=== PATIENT | male | born 1980 | race Caucasian/White ===

== ENCOUNTER 2022-04-19 10:53 | Emergency (ER) | payer BC, SELFPAY ==
[2022-04-19 11:16] VITALS: BP 153/93; PULSE 74; RESP 20; TEMP 36.5; O2SAT 98; BMI 23.1
--- NOTE | 2022-04-19 12:05 | ED.GENADULT ---
HPI - General Adult General Time Seen by Provider: 12:05 Date Seen: 04/19/22 Chief complaint: Abdominal Pain Stated complaint: Gallbladder pain Time Seen by Provider: 04/19/22 12:04 Source: patient and RN notes reviewed Mode of arrival: ambulatory Limitations: no limitations History of Present Illness HPI narrative: Fahad is a 42-year-old male coming in with concern of gallbladder issues. He has been having progressively increased frequency and longer severity of symptoms with right upper quadrant abdominal pain with eating. He may occasionally note something with breathing but it seems different. He has had no nausea vomiting with this, no change in stools or diarrhea. He does have ongoing urinary frequency and recently was started on Flomax for enlarged prostate per report. He has had no fevers or chills. He thinks he has maybe had intermittent episode dating back a few years but recently it has been happening maybe 3 or 4 times a day, lasting longer, maybe up to 10 minutes. Any food can seem to precipitate it. 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 Sounds as if he is done inpatient and outpatient stays for this prior. Right now he has about a month and a half in. He has never had any prior abdominal surgery. He is on Flomax for his reported BPH and also medicine to decrease cravings, wonder if it is naltrexone. In his family history, his mom has had to have her gallbladder out for gallstones reportedly. Related Data Home Medications Medication Instructions Recorded Confirmed Unobtainable 04/19/22 04/19/22 Allergies Allergy/AdvReac Type Severity Reaction Status Date / Time No Known Drug Allergies Allergy Verified 04/19/22 11:20 Review of Systems Status of ROS: Reports: 10 or more systems reviewed and unremarkable except as noted in History and below [facility] Medical History (Updated 04/19/22 @ 14:58 by Sheryl Raygoza MD) Substance abuse Social History Non-prescribed substance use: denies use Exam Const: Vital Signs, click to edit/add: Vital Signs - 24 hr 04/19/22 11:16 Temperature 97.7 F Pulse Rate [Pulse Oximeter] 74 Respiratory Rate 20 Blood Pressure [Ri ght Upper Arm] 153/93 H Pulse Oximetry 98 Oxygen Delivery Me thod Room Air Documenting provider has reviewed patient's vital signs: yes Common normals: no apparent distress, average body habitus, oriented x3, no limitations, healthy appearing, alert and well nourished General appearance: cooperative, comfortable, well kempt and well developed Nutritional appearance: thin HENMT: Common normals: normocephalic, head/scalp atraumatic and hearing grossly normal bilaterally Head and scalp: normocephalic and atraumatic Eye: Common normals: PERRL, EOMs intact bilaterally, conjunctivae normal and no scleral icterus Conjunctiva: conjunctiva(e) normal Pupil: PERRL Neck & C-Spine: Common normals: full ROM, no lymphadenopathy, no meningeal signs, no JVD and thyroid normal Thyroid: thyroid normal Resp: Common normals: normal respiratory effort, no retractions, no use of accessory muscles and clear to auscultation bilaterally Auscultation: clear to auscultation bilaterally Cardio: Common normals: no JVD, regular rate, regular rhythm, S1 normal heart sound, S2 normal heart sound, no gallops, no clicks and no murmurs Rate: regular rate Rhythm: regular rhythm Heart sounds: S1 normal and S2 normal GI: Common normals: Normal to inspection, nondistended, normoactive bowel sounds present, soft to palpation, non-tender, no hepatosplenomegaly and no masses Palpation: soft and no hepatosplenomegaly Neuro: Common normals: oriented x3 Sensorium/orientation: alert Meningeal signs: no meningeal signs Psych: Appearance: well kempt Course Course Hospital Course: We will obtain a right upper quadrant ultrasound to look at gallbladder pathology, get baseline appropriate labs. Have reviewed with money other things in the differential that come to mind would be stomach or gastric pathology such as ulcers, gastritis, H pylori infection possibly underlying these. Will see if there is anything with his gallbladder ultrasound and labs and guide therapy accordingly. He is afebrile and currently stable, pain-free. Reevaluation(s) Reevaluation #1: Was reviewed with patient his ultrasound findings. There does appear that there might be gallbladder polyps and he can follow up with General surgery outpatient. His hemoglobin is just mildly low at 12.9. This does make me concern for possible GI causes of his issues including but not limited to peptic ulcer disease or gastritis. In the meantime, we will recommend that he go on a proton pump inhibitor. He can talk to our general surgery about considering endoscopy in his workup as well. He should consider having outpatient H pylori checked as well. Will leave some of this to follow up with his primary care provider. Time: 14:52 Vital Signs Vital signs: Initial Vital Signs Temperature 97.7 F 04/19/22 11:16 Temperature Source Temporal Artery Scan 04/19/22 11:16 Pulse Rate 74 04/19/22 11:16 Respiratory Rate 20 04/19/22 11:16 Blood Pressure 153/93 H 04/19/22 11:16 Blood Pressure Mean 113 04/19/22 11:16 Blood Pressure Position Supine 04/19/22 11:16 Pulse Oximetry 98 04/19/22 11:16 Oxygen Delivery Method 04/19/22 11:16 Vital Signs Temperature 97.7 F 04/19/22 11:16 Pulse Rate 74 04/19/22 11:16 Respiratory Rate 20 04/19/22 11:16 Blood Pressure 153/93 H 04/19/22 11:16 Pulse Oximetry 98 04/19/22 11:16 Oxygen Delivery Method 04/19/22 11:16 Temperature 97.7 F 04/19/22 11:16 Pulse Rate 74 04/19/22 11:16 Respiratory Rate 20 04/19/22 11:16 Blood Pressure 153/93 H 04/19/22 11:16 Pulse Oximetry 98 04/19/22 11:16 Oxygen Delivery Method 04/19/22 11:16 Medical Decision Making Lab Data Lab results reviewed: Yes I reviewed the patient's lab results Labs: Lab Results 04/19/22 04/19/22 04/19/22 Range/Units 11:45 12:50 12:50 WBC 7.35 (4.50-11.00) K/uL RBC 4.44 (4.30-5.90) m/uL Hgb 12.9 L (13.5-17.5) gm/dL Hct 39.3 (37.0-53.0) % MCV 89 (80-100) fL MCH 29 (26-34) pg MCHC 33 (32-36) gm/dL RDW Coeff of Irasema 13.8 (11.5-15.5) % Plt Count 248 (140-440) K/uL Neut % (Auto) 71.8 (42.0-72.0) % Lymph % (Auto) 19.0 L (20-44) % Edmunds % (Auto) 8.4 (0.0-11.0) % Eos % (Auto) 0.3 (0.0-7.0) % Baso % (Auto) 0.4 (0.0-3.0) % Neut # (Auto) 5.27 (1.7-7.0) K/uL Lymph # (Auto) 1.40 (0.90-2.90) K/uL Edmunds # (Auto) 0.60 (0.00-0.90) K/UL Eos # (Auto) 0.02 (0.00-0.50) K/uL Baso # (Auto) 0.03 (0.00-0.30) K/uL Abs Immat Gran (auto) 0.01 (0.00-0.30) K/uL Imm/Tot Granulo (auto) 0.1 % Sodium 140 (135-149) mmol/L Potassium 4.7 (3.6-5.1) mmol/L Chloride 106 (96-114) mmol/L Carbon Dioxide 30 (20-32) mmol/L BUN 14 (5-24) mg/dL Creatinine 0.9 (0.5-1.5) mg/dL Estimated Creat Clear 109.27 Estimated GFR 109 ml/min Glucose 86 (60-115) mg/dL Calcium 9.4 (8.4-10.6) mg/dL Total Bilirubin 0.4 (0.1-1.5) mg/dL AST 29 (12-35) U/L ALT 35 (4-50) U/L Alkaline Phosphatase 99 (40-150) U/L C-Reactive Protein < 0.5 L (0.5-1.0) mg/dL Total Protein 7.8 (6.0-8.3) g/dL Albumin 4.7 (3.3-5.0) g/dL Lipase 26 (23-300) U/L Urine Color Yellow (Yellow) Urine Appearance Clear (Clear) Urine pH 7.0 (5.0-8.5) Ur Specific [place] 1.010 (1.000-1.030) Urine Protein Negative (Negative) Urine Glucose (UA) Negative (Negative) Urine Ketones Negative (Negative) Urine Blood Negative (Negative) Urine Nitrite Negative (Negative) Urine Bilirubin Negative (Negative) Urine Urobilinogen 0.2 (0.2-1.0) Ur Leukocyte Esterase Negative (Negative) Urine RBC 0-2 (0-2) Urine WBC 0-2 (0-5) Ur Squamous Epith Cells Few (None-Few) Urine Bacteria None (None) Imaging Data US - abdomen: Attestation: I have reviewed the pertinent imaging results. Radiologist's impression: Patient: JULIA PEÑA Facility:?[facility] Patient ID:?[id number] Site Patient ID:?[id number]. Site :?[id number] Study:?US Abdomen/Pelvis -04/19/2022 12:43:37 PM Ordering Physician:Duarte Saucedo Final Report: Indication: Intermittent right upper quadrant pain Technique: Sonography of the abdomen was performed limited structures discussed Comparison: None Findings: Gallbladder wall thickness is globally normal 2 millimeters. There are numerous mobile echogenic foci associated with the inner aspect of the gallbladder wall. These are nonmobile and do not shadow and do not have ring down artifact. Largest of these measures 2 millimeters in greatest dimension. These likely represent multiple small polyps. No calculi. No pericholecystic fluid. No sonographic Yaala`s sign appearance The common duct measures 7 millimeters. This is mildly prominent for a patient of this age. The distal most duct is not visible on this exam. The pancreas was poorly seen due to overlying bowel gas. The right kidney is unremarkable in size and appearance measuring 9.5 x 4.8 x 5.9 centimeters. Proximal aorta and proximal cave appear normal. Impression: 1. Multiple small gallbladder polyps the largest of which measures 1 millimeter. There are no visible stones, wall thickening, pericholecystic fluid or sonographic Ayala`s sign 2. Mildly prominent extrahepatic duct for patient age measuring about 7 millimeters. The distal duct and the pancreas are poorly visualized on this study. Consider additional follow-up imaging such as MRCP in the setting of unexplained right upper quadrant pain with a mildly prominent duct. 3. The examination is otherwise overall unremarkable Critical Care Time Critical Care Time Critical Care Time: No Discharge Plan Discharge Clinical Impression: Abdominal pain, right upper quadrant, Anemia Condition: Stable Instructions: Biliary Colic (ED), Anemia (ED) Additional Instructions: Recommend follow up with our surgeons for the gallbladder polyps. Call the clinic at [phone] to get scheduled to see 1 of them. Otherwise, do recommend going on omeprazole to protect her stomach in case there is gastritis or ulcer disease. Your hemoglobin needs to be rechecked in the next 1-2 weeks, recommend recheck with your primary care provider in clinic for this. They should also consider testing you for H pylori. You can talk to the surgeon about possibility of an EGD, discuss this with them when you follow-up for the gallbladder polyps. In the meantime, if you develop severe abdominal pain, vomiting or fever with abdominal pain, do need to return to the ER for further evaluation. Prescriptions: No Action Unobtainable Stand Alone Forms: [employer] Info Instructions
--- NOTE | 2022-04-19 12:13 | CRLHL7_ITS ---
For Patients: As a result of the Century Cures Act, medical imaging exams and procedure reports are released immediately into your electronic medical record. You may view this report before your referring provider. If you have questions, please contact your health care provider. Indication: Intermittent right upper quadrant pain Technique: Sonography of the abdomen was performed limited structures discussed Comparison: None Findings: Gallbladder wall thickness is globally normal 2 millimeters. There are numerous mobile echogenic foci associated with the inner aspect of the gallbladder wall. These are nonmobile and do not shadow and do not have ring down artifact. Largest of these measures 2 millimeters in greatest dimension. These likely represent multiple small polyps. No calculi. No pericholecystic fluid. No sonographic Ayala`s sign appearance The common duct measures 7 millimeters. This is mildly prominent for a patient of this age. The distal most duct is not visible on this exam. The pancreas was poorly seen due to overlying bowel gas. The right kidney is unremarkable in size and appearance measuring 9.5 x 4.8 x 5.9 centimeters. Proximal aorta and proximal cave appear normal. Impression: 1. Multiple small gallbladder polyps the largest of which measures 1 millimeter. There are no visible stones, wall thickening, pericholecystic fluid or sonographic Ayala`s sign 2. Mildly prominent extrahepatic duct for patient age measuring about 7 millimeters. The distal duct and the pancreas are poorly visualized on this study. Consider additional follow-up imaging such as MRCP in the setting of unexplained right upper quadrant pain with a mildly prominent duct. 3. The examination is otherwise overall unremarkable Dictated by Jerzy Welch MD @ 04/19/2022 1:07:14 PM (Electronically Signed)
[2022-04-19 12:26] LABS: Appearance Urine Clear (Clear); Bilirubin Urine Negative (Negative); Blood Urine Negative (Negative); Color Urine Yellow (Yellow); Glucose Urine Negative (Negative); Ketones Urine Negative (Negative); Leukocyte Esterase Urine Negative (Negative); Nitrite Urine Negative (Negative); Protein Urine Negative (Negative); Urobilinogen Urine 0.2 (0.2-1.0)
[2022-04-19 12:34] LABS: RBC Urine 0-2 (0-2); Squamous Epithelial Cell Urine Few (None-Few); WBC Urine 0-2 (0-5)
[2022-04-19 12:59] LABS: Basophils Absolute Auto 0.03 K/uL (0.00-0.30); Basophils Percent Auto 0.4 % (0.0-3.0); Eosinophils Absolute Auto 0.02 K/uL (0.00-0.50); Eosinophils Percent Auto 0.3 % (0.0-7.0); Hematocrit 39.3 % (37.0-53.0); Hemoglobin* 12.9 gm/dL (13.5-17.5); Immature Granulocytes Abs Auto 0.01 K/uL (0.00-0.30); Immature Granulocytes Pct Auto 0.1 %; Mean Corpuscular HGB Conc 33 gm/dL (32-36); Mean Corpuscular Hemoglobin 29 pg (26-34); Mean Corpuscular Volume 89 fL (80-100); Monocytes Percent Auto 8.4 % (0.0-11.0); Neutrophils Absolute Auto 5.27 K/uL (1.7-7.0); Neutrophils Percent Auto 71.8 % (42.0-72.0); Platelet Count* 248 K/uL (140-440); RDW Coefficient of Variation % 13.8 % (11.5-15.5); Red Blood Count 4.44 m/uL (4.30-5.90); White Blood Count* 7.35 K/uL (4.50-11.00)
[2022-04-19 13:12] LABS: Albumin* 4.7 g/dL (3.3-5.0); Chloride* 106 mmol/L (96-114); Slide Review Reflex No
[2022-04-19 13:13] LABS: Potassium* 4.7 mmol/L (3.6-5.1); Sodium* 140 mmol/L (135-149)
[2022-04-19 13:15] LABS: Bilirubin Total* 0.4 mg/dL (0.1-1.5); Creatinine* 0.9 mg/dL (0.5-1.5); Est. Creatinine Clearance* 109.27; Estimated Glomerular Filt Rate 109 ml/min
[2022-04-19 13:16] LABS: Alanine Aminotransferase* 35 U/L (4-50); Alkaline Phosphatase* 99 U/L (40-150); Aspartate Amino Transferase* 29 U/L (12-35); Blood Urea Nitrogen* 14 mg/dL (5-24); Calcium* 9.4 mg/dL (8.4-10.6); Carbon Dioxide* 30 mmol/L (20-32); Glucose* 86 mg/dL (60-115); Total Protein* 7.8 g/dL (6.0-8.3)
[2022-04-19 13:19] LABS: C Reactive Protein* < 0.5 mg/dL (0.5-1.0)
[2022-04-19 13:45] LABS: Lipase* 26 U/L (23-300)
--- NOTE | 2022-04-19 15:25 | ED.NURSE ---
Follow up appointments were made for patient after he reported difficulty in finding provider. Clinic with PCP made for Apr.29 at 12:45 with appointment with surgery following with Dr. Celaya. Paper rx was provided for omeprazole.
== END 2022-04-19 15:33 | disposition home or self-care (01) ==
PROVIDERS: Emergency Provider Family Medicine
DX: R10.11 Right upper quadrant pain (principal); K82.4 Cholesterolosis of gallbladder; D64.9 Anemia, unspecified; Z79.899 Other long term (current) drug therapy
CPT/HCPCS: 36415; 76705; 80053; 81001; 83690; 85025; 86140; 99284

== ENCOUNTER 2022-06-07 10:55 | Outpatient (CLI) | payer BC, SELFPAY ==
--- NOTE | 2022-06-07 12:40 | W.ANESCHARGE ---
Anesthesia Charges Start Date/Time Anesthesia Start Date: 06/07/22 Anesthesia Start Time: 12:15 Stop Date/Time Anesthesia Stop Date: 06/07/22 Anesthesia Stop Time: 12:37 Summary Emergency: No
[2022-06-07 15:22] LABS: SARS Antigen* negative (Negative)
== END 2022-06-07 10:56 | disposition home or self-care (01) ==
PROVIDERS: PCP Family Medicine; Visit Provider Surgery
DX: R19.8 Other specified symptoms and signs involving the digestive system and abdomen (principal)
CPT/HCPCS: 00731; 43239; 87426; 88305; J2704

== ENCOUNTER 2022-06-09 21:00 | Outpatient (CLI) | payer BC, SELFPAY | END 2022-06-09 21:01 | disposition home or self-care (01) | LOC: AMB 06-10 03:03 | PROVIDERS: PCP Family Medicine; Visit Provider Family Medicine | DX: K08.89 Other specified disorders of teeth and supporting structures (principal) | CPT/HCPCS: A0425; A0429 ==

== ENCOUNTER 2022-06-09 21:13 | Emergency (ER) | payer BC, SELFPAY ==
[2022-06-09 21:22] VITALS: BP 141/100; PULSE 73; TEMP 36.7; O2SAT 98; BMI 23.0
[2022-06-09 22:35] VITALS: PULSE 54; O2SAT 98
--- NOTE | 2022-06-10 12:05 | ED_ITS ---
HPI - Dental/Oral General Chief complaint: Dental/Oral/Mouth Injury/Pain Stated complaint: Toothache Time Seen by Provider: 06/09/22 21:54 History of Present Illness HPI Narrative: 42-year-old man presenting to the emergency department with concern of pain and swelling right upper mouth. Has been having increasing pain over the last week. Using Anbesol and Orajel apparently. Is in inpatient [facility] treatment. He does admit specifically for methamphetamine. He has had problems with his teeth before. No fever. No drainage. No pain with eye movement. Due to need for transportation he arrives via EMS. Is hoping for antibiotic. Related Data Home Medications Medication Instructions Recorded Confirmed naltrexone 50 mg tablet 50 mg PO QDAY 04/28/22 04/28/22 sildenafil 100 mg tablet 100 mg PO QDAY PRN 04/28/22 04/28/22 tamsulosin 0.4 mg capsule applicator PO 04/28/22 04/28/22 omeprazole 40 mg capsule,delayed mg 06/09/22 release trazodone 50 mg tablet mg 06/09/22 Allergies Allergy/AdvReac Type Severity Reaction Status Date / Time No Known Drug Allergies Allergy Verified 04/28/22 13:36 Review of Systems Status of ROS: Reports: 6 or more systems reviewed and unremarkable except as noted in History and below [facility] Medical History Substance abuse Social History Smoking Status: Current every day smoker How often do you have a drink containing alcohol: never How often do you have six or more drinks on one occasion: Never AUDIT-C Alcohol total score: 0 Non-prescribed substance use: denies use Little interest or pleasure in doing things: more than half the days Feeling down, depressed, or hopeless: nearly every day Exam Narrative: Exam Narrative: Pleasant. Dressed casually. Flat flannel pants on. Mildly anxious seems a little uncomfortable. Breathing easily. No stridor. Lungs appear to be clear. Neck is supple. He is sore with little fullness in the right upper lymph node chain. Neck is supple. There is mild swelling of the right cheek underneath the right zygoma. No induration. Oropharyngeal exam shows tooth # 8 greyed and cracked. Some of the lingual side tooth is missing. Dentition overall looks in pretty decent shape. I do not see swelling of the gums. There are no discrete abscess. Cardiovascular with regular rate and rhythm. Const: Vital Signs, click to edit/add: Vital Signs - 24 hr 06/09/22 21:22 06/09/22 22:35 Temperature 98.0 F Pulse Rate [Pulse Oximeter] 73 54 L Blood Pressure [Le ft Upper Arm] 141/100 H Pulse Oximetry 98 98 Oxygen Delivery Me thod Room Air Room Air Documenting provider has reviewed patient's vital signs: yes Course Vital Signs Vital signs: Initial Vital Signs Temperature 98.0 F 06/09/22 21:22 Temperature Source Temporal Artery Scan 06/09/22 21:22 Pulse Rate 73 06/09/22 21:22 Blood Pressure 141/100 H 06/09/22 21:22 Blood Pressure Mean 113 06/09/22 21:22 Blood Pressure Position Sitting 06/09/22 21:22 Pulse Oximetry 98 06/09/22 21:22 Oxygen Delivery Method 06/09/22 21:22 Vital Signs Temperature 98.0 F 06/09/22 21:22 Pulse Rate 73 06/09/22 21:22 Blood Pressure 141/100 H 06/09/22 21:22 Pulse Oximetry 98 06/09/22 21:22 Oxygen Delivery Method 06/09/22 21:22 Temperature 98.0 F 06/09/22 21:22 Pulse Rate 54 L 06/09/22 22:35 Blood Pressure 141/100 H 06/09/22 21:22 Pulse Oximetry 98 06/09/22 22:35 Oxygen Delivery Method 06/09/22 22:35 MDM - Dental/Oral MDM Narrative Medical decision making narrative: I do offer dental injection/block for full relief of pain but a says is afraid of needles. will initiate a course of amoxicillin Discharge Plan Discharge Clinical Impression: Dental decay, Dental infection Patient Disposition: Home, Self-Care Condition: Stable Additional Instructions: Consider swishing with warm salt water; 1/4 tsp salt in for 4-5 oz warm water a couple of times daily. Might try external ice packs. Orajel/Anbesol or clove packs/oil of clove. Might try temporary packing with [employer] dental putty. Can buy from the pharmacy area of [facility] [employer]. Temporarily and with a little food can take up to 800 mg of ibuprofen or up to 1000 mg of acetaminophen per dose. Alternative to the ibuprofen, could be up to 500 mg naproxen 2 times daily. See handout for dental clinics once you've graduated. Return for marked increase in pain, swelling, redness, development of fever, copious drainage. Take 2 tabs of amoxicillin for your 1st dose. Prescriptions: No Action tamsulosin 0.4 mg capsule PO naltrexone 50 mg tablet 50 mg PO QDAY sildenafil 100 mg tablet 100 mg PO QDAY PRN Label Comments: TAKE ONE TABLET BY MOUTH EVERY DAY NEEDED FOR ED trazodone 50 mg tablet Label Comments: Take 1-2 tablet by mouth at bedtime as needed for sleep omeprazole 40 mg capsule,delayed release(/EC) Follow Up/Referrals: Galen Anderson MD [Primary Care Provider] - Stand Alone Forms: [employer] Info Instructions
== END 2022-06-09 22:42 | disposition home or self-care (01) ==
LOC: ED 22:26
PROVIDERS: Emergency Provider Family Medicine; PCP Family Medicine
DX: K02.9 Dental caries, unspecified (principal)
CPT/HCPCS: 99283